=== PATIENT | female | born 1930 | race Caucasian/White ===

== ENCOUNTER 2017-03-28 14:29 | Outpatient (CLI) | payer MEDICARE, BC ==
--- NOTE | 2017-03-30 14:06 | Ultrasound Report ---
CAROTID DUPLEX: 03/28/2017 CLINICAL INDICATION: Neck pain, chest pain. TECHNIQUE: Real-time sonographic vascular imaging was performed by the tower loader operator through the carotid arteries utilizing both color-flow and Doppler spectral analysis. Multiple open claims representative static images were saved for review. Vessel PSV cm/sec 2D Plaque Estimate % ICA/CCA PSV EDV cm/sec % Stenosis RCCA Prox 76 -- RCCA Dist 84 16 RECA 67 -- RT BULB 76 -- 0.90 10 PRETTY Prox 54 -- 0.64 8 PRETTY Mid 6.1 -- 0.72 15 PRETTY Dist 60 -- 0.71 14 RVA 60 RVA flow direction: Antegrade. Vessel PSV cm/sec 2D Plaque Estimate % ICA/CCA PSV EDV cm/sec % Stenosis LCCA Prox 71 -- LCCA Dist 71 10 LECA 125 -- LFT BULB 71 -- 1.0 15 LICA Prox 46 -- 0.64 11 LICA Mid 77 -- 1.0 16 LICA Dist 77 -- 1.0 18 LVA 39 LVA flow direction: Antegrade. Velocity criteria are extrapolated from diameter data as defined by the Society of Radiologists in Ultrasound Consensus Conference Radiology 2003; 229; 340-346. Degree of Stenosis % ICA PSV cm/sec Plaque Estimate % ICA/CCA RSV Ratio ICA EDV cm/sec Normal < 125 None < 2.0 < 40 <50 < 125 < 50 < 2.0 < 40 50-69 125 - 130 >/= 50 2.0 - 4.0 40 - 100 >/= 70 but less than near occlusion > 230 >/= 50 > 4.0 > 100 Near occlusion High, low, or undetectable Visible lumen Variable Variable Total occlusion Undetectable No detectable lumen Not applicable Not applicable FINDINGS: RIGHT: There is minimal plaquing in the right carotid bifurcation, without evidence of a focal hemodynamically significant carotid stenosis. LEFT: There is mild plaquing in the left carotid bifurcation, without evidence of a focal hemodynamically significant carotid stenosis. The vertebral arteries demonstrate antegrade flow bilaterally. Incidental note is made of an irregular heart rhythm. IMPRESSION: NO EVIDENCE OF A HEMODYNAMICALLY SIGNIFICANT CAROTID STENOSIS. [facility]
== END 2017-03-28 14:30 | disposition home or self-care (01) ==
LOC: DI 14:29
PROVIDERS: ATTEND Nurse Practitioner Family
DX: R07.9 Chest pain, unspecified (principal); M54.2 Cervicalgia
CPT/HCPCS: 93005; 93880

== ENCOUNTER 2018-03-03 13:55 | Outpatient (CLI) | payer MEDICARE, BC ==
[2018-03-03 14:49] LABS: ALBUMIN 3.7 g/dL (3.2-5.5); BILIRUBIN,TOTAL 0.7 mg/dL (0.2-1.0); CALCIUM 8.7 mg/dL (8.5-10.3); CREATININE 0.6 mg/dL (0.4-1.0); TOTAL PROTEIN 7.3 g/dL (6.7-8.2)
--- NOTE | 2018-03-03 15:22 | XRAY Report ---
EXAM: CHEST RADIOGRAPHY EXAM DATE: 03/03/2018 02:56 PM. CLINICAL HISTORY: Chest and rib pain. COMPARISON: None. TECHNIQUE: 2 views. FINDINGS: Lungs/Pleura: No pleural effusion or pneumothorax. Eventration anterior aspect right hemidiaphragm. N o focal consolidation. Mediastinum: Normal heart size. Atherosclerosis. Other: Rightward curvature thoracic spine. IMPRESSION: No acute pulmonary consolidation. [facility] Referring Provider Line: [phone] SITE ID: [id number]
[2018-03-03 15:40] LABS: BASOPHILS % (AUTO) 0.7 %; EOSINOPHILS % (AUTO) 1.5 %; HGB - HEMOGLOBIN 11.5 g/dL (12.0-16.0); LYMPHOCYTES % (AUTO) 25.1 %; MEAN CORPUSCULAR HEMOGLOBIN 25.1 pg (27.0-31.0); MEAN CORPUSCULAR HGB CONC 32.8 g/dL (32.0-36.0); MEAN CORPUSCULAR VOLUME 76.4 fL (81.0-99.0); MEAN PLATELET VOLUME 7.3 fL (7.9-10.8); MONOCYTES % (AUTO) 5.8 %; NEUTROPHILS % (AUTO) 66.9 %; PLT - PLATELET COUNT 422 10^3/uL (130-450); RED BLOOD COUNT 4.59 10^6/uL (4.20-5.40); WHITE BLOOD COUNT 7.6 x10^3/uL (4.8-10.8)
[2018-03-03 15:42] LABS: ABNORMAL LYMPHS % (MANUAL) 0 %; BAND NEUTROPHILS % (MANUAL) 0 %
[2018-03-03 15:50] LABS: EOSINOPHILS # (MANUAL) 0.2 10^3/uL (0-0.7); LYMPHOCYTES # (MANUAL) 2.6 10^3/uL (1.5-3.5); LYMPHOCYTES % (MANUAL) 32 %; MONOCYTES # (MANUAL) 0.5 10^3/uL (0.0-1.0); NEUTROPHILS # (MANUAL) 4.3 10^3/uL (1.5-6.6); NEUTROPHILS % (MANUAL) 57 %
[2018-03-03 15:53] LABS: DIFFERENTIAL COMMENT MANUAL DIFFERENTIAL; PLATELET ESTIMATE, MANUAL NORMAL (130-450,000) (NORMAL); PLATELET MORPHOLOGY RARE GIANT PLATELETS (NORMAL)
== END 2018-03-03 13:56 | disposition home or self-care (01) ==
LOC: LAB 13:55
PROVIDERS: ATTEND Specialist
DX: R07.81 Pleurodynia (principal); R07.9 Chest pain, unspecified
CPT/HCPCS: 36415; 71046; 80053; 85025

== ENCOUNTER 2018-03-08 13:29 | Outpatient (CLI) | payer MEDICARE, BC ==
--- NOTE | 2018-03-08 15:07 | Mammography Report ---
DIAGNOSTIC BILATERAL MAMMOGRAM: 03/08/2018 CLINICAL INDICATION: Localized left breast pain, possible nodule left periareolar breast on clinical examination. TECHNIQUE: Bilateral CC and MLO views, left true lateral views. Markers were placed at the site of maximal tenderness identified by the patient in the left outer breast. COMPARISON: 05/2011, 04/2010, 04/2009. FINDINGS: The breasts again demonstrate heterogeneously dense fibroglandular parenchyma bilaterally. A few punctate, typically benign calcifications are present. No suspicious masses, clustered microcalcifications, or regions of architectural distortion are identified. Specifically, no mammographic abnormality is appreciated in the outer left breast, at the site of maximal tenderness and no periareolar abnormality is appreciated in the left breast. Please also refer to left breast ultrasound of the same day. IMPRESSION: BENIGN FINDINGS. RECOMMENDATION: Routine annual screening unless otherwise clinically indicated. BI-RADS CATEGORY 2 - BENIGN FINDINGS. STANDARD QUALIFYING STATEMENTS: 1. This examination was reviewed with the aid of Computer-Aided Detection (CAD) . 2. A negative or benign imaging report should not delay biopsy if clinically suspicious findings are present. Consider surgical consultation if warranted. More than 5 % of cancers are not identified by imaging. 3. Dense breasts may obscure an underlying neoplasm. TD: 03/08/2018 14:51 ELENITA
--- NOTE | 2018-03-08 15:09 | Ultrasound Report ---
LEFT BREAST ULTRASOUND: 03/08/2018 CLINICAL INDICATION: Pain, palpable abnormality on clinical exam. TECHNIQUE: Real-time scanning was performed with correspondence representative static images obtained. FINDINGS: Ultrasound of the region of pain identified by the patient was performed, as well as the palpable periareolar abnormality indicated on the requisition. Unremarkable parenchymal lobules are seen. No discrete solid or cystic mass is identified. No sonographically suspicious findings are seen. IMPRESSION: NEGATIVE EXAMINATION. RECOMMENDATION: Routine annual screening unless otherwise clinically indicated. BI-RADS CATEGORY 1 - NEGATIVE. TD: 03/08/2018 15:03
== END 2018-03-08 13:30 | disposition home or self-care (01) ==
LOC: DI 13:29
PROVIDERS: ATTEND Family Medicine
DX: N64.4 Mastodynia (principal)
CPT/HCPCS: 76642; 77066